=== PATIENT | male | born 1990 | race African-American/Black ===

== ENCOUNTER 2017-01-20 17:31 | Emergency (ER) | payer BC ==
[~2017-01-20] VITALS: Ht 162.6 cm; Wt 61.0 kg
[~2017-01-20 17:31] MED LIST: ALBU8.5H5 IH; PRED20TA PO; PROM6.25 PO
[2017-01-20 17:34] VITALS: Ht 162.6 cm; Wt 61.0 kg
[2017-01-20] MEDS ORDERED: KETOROLAC 30 MG INJ IM STA (19:19)
[2017-01-20 19:36] LABS: BASOPHILS % 0.3 % (0.0-2.0); EOSINOPHILS # 0.1 10^3/ul (0.0-0.5); EOSINOPHILS % 0.9 % (0.0-7.0); HEMATOCRIT 42.8 % (42.0-52.0); HEMOGLOBIN 14.7 g/dl (14.0-18.0); LYMPHOCYTES % 17.2 % (15.0-51.0); MEAN CORPUSCULAR HEMOGLOBIN 31.1 pg (29.0-33.0); MEAN CORPUSCULAR HGB CONC 34.3 g/dl (32.0-37.0); MEAN CORPUSCULAR VOLUME 90.7 fl (82.0-101.0); MEAN PLATELET VOLUME 12.1 fl (7.4-10.4); MONOCYTES % 8.2 % (0.0-11.0); NEUTROPHIL # 8.7 10^3/ul (1.6-7.5); NEUTROPHILS % 73.1 % (39.0-77.0); PLATELET COUNT 155 10^3/UL (140-415); RED BLOOD COUNT 4.72 10^6/ul (4.70-6.10); RED CELL DISTRIBUTION WIDTH 13.3 % (11.5-14.5); WHITE BLOOD COUNT 11.8 10^3/ul (4.8-10.8)
[2017-01-20 19:54] LABS: ANION GAP 13 (8-16); BLOOD UREA NITROGEN 13 mg/dl (7-20); CALCIUM 9.8 mg/dl (8.4-10.2); CARBON DIOXIDE 28 mmol/L (21-31); CHLORIDE 104 mmol/L (97-110); CREATININE 0.99 mg/dl (0.61-1.24); GLUCOSE 84 mg/dl (70-220); POTASSIUM 4.1 mmol/L (3.5-5.1); SODIUM 141 mmol/L (135-144)
[2017-01-20 20:18] LABS: TROPONIN-I < 0.012 ng/ml (0.00-0.12)
--- NOTE | 2017-01-20 21:53 | RADRPT ---
PROCEDURE: Left rib x-rays CLINICAL INDICATION: 26 years of age, male. Chest pain. TECHNIQUE: 5 views of the left ribs. COMPARISON: None available. FINDINGS: No acute displaced left rib fracture is identified. Negative for evidence of a left pleural effusion or pneumothorax. Mediastinum is unremarkable. Additional comment:None. IMPRESSION: Negative for evidence of an acute left rib fracture, although the presence of a nondisplaced rib fra cture cannot be excluded. RPTAT: HCTS Physician Sandeep Date Time Electronically viewed and signed by Mary Ann Sanders Physician on 01/20/2017 21:52 CS/
[2017-01-20] MEDS ORDERED: NAPR-260 PO (21:55)
[2017-01-20 22:29] VITALS: BP 127/79; PULSE 100; RESP 19; TEMP 98
--- NOTE | 2017-01-20 22:59 | ERD ---
ER Documentation Chief Complaint Chief Complaint sob and chest pain with deep breathing since yesterday HPI This patient is an otherwise healthy 26-year-old male presented to the emergency department with complaints of left-sided chest pain only when taking deep inspirations. Symptoms began yesterday while he was sitting on the couch. They began suddenly. Symptoms are intermittent. He denies trauma, sick contacts, or other symptoms. He has never had the symptoms in the past. ROS All systems reviewed and are negative except as per history of present illness. Medications Home Meds Active Scripts Naproxen* (Naprosyn*) 500 Mg Tablet, 500 MG PO BID Y for PAIN AND/OR INFLAMMATION, #30 TAB Prov:ODNNA CLINTON PA-C 01/20/17 Albuterol Sulfate* (Albuterol Sulfate* HFA) 8.5 Gm Hfa.aer.ad, 2 PUFF IH Q4H Y for WHEEZING AND SOB, #1 EA Prov:LAMIN LOUIE 09/15/14 Promethazine Hcl* (Phenergan* Liq) 6.25 Mg/5 Ml Syrup, 6.25 MG PO Q12 Y for COUGH for 14 Days, ML Prov:LAMIN LOUIE 09/15/14 Prednisone* (Prednisone*) 20 Mg Tab, 40 MG PO DAILY for 4 Days, TAB Prov:LAMIN LOUIE 09/15/14 Allergies Allergies: Coded Allergies: acetaminophen (Verified Allergy, Intermediate, hives, 01/20/17) PMhx/Soc History of Surgery: Yes (Bilateral Lower Leg Surgery) Anesthesia Reaction: No Hx Neurological Disorder: No Hx Respiratory Disorders: Yes (Bronchitis) Hx Cardiac Disorders: No Hx Psychiatric Problems: No Hx Miscellaneous Medical Probl: No Hx Alcohol Use: No Hx Substance Use: No Hx Tobacco Use: No Smoking Status: Never smoker Physical Exam Vitals Vital Signs Date Time Temp Pulse Resp B/P Pulse Ox O2 Delivery O2 Flow Rate FiO2 01/20/17 22:29 98.0 100 19 127/79 100 Room Air 01/20/17 17:34 97.6 77 18 132/72 98 Physical Exam Const: Nontoxic, well-appearing male in second in mild distress secondary to pain. Head: Atraumatic Eyes: Normal Conjunctiva ENT: Normal External Ears, Nose and Mouth. Neck: Full range of motion..~ No meningismus. Resp: Clear to auscultation bilaterally. The patient winces in pain on deep inspiration. Left lower rib tenderness to palpation. Cardio: Regular rate and rhythm, no murmurs Skin: No petechiae or rashes Ext: No cyanosis, or edema Neur: Awake and alert Psych: Normal Mood and Affect Result Diagram: 01/20/17192601/20/171926 Results 24 hrs Laboratory Tests Test 01/20/17 19:27 White Blood Count 11.810^3/ul Red Blood Count 4.7210^6/ul Hemoglobin 14.7g/dl Hematocrit 42.8% Mean Corpuscular Volume 90.7fl Mean Corpuscular Hemoglobin 31.1pg Mean Corpuscular Hemoglobin Concent 34.3g/dl Red Cell Distribution Width 13.3% Platelet Count 05552^3/UL Mean Platelet Volume 12.1fl Neutrophils % 73.1% Lymphocytes % 17.2% Monocytes % 8.2% Eosinophils % 0.9% Basophils % 0.3% Nucleated Red Blood Cells % 0.0/100WBC Neutrophils # 8.710^3/ul Lymphocytes # 2.010^3/ul Monocytes # 1.010^3/ul Eosinophils # 0.110^3/ul Basophils # 0.010^3/ul Nucleated Red Blood Cells # 0.010^3/ul Sodium Level 141mmol/L Potassium Level 4.1mmol/L Chloride Level 104mmol/L Carbon Dioxide Level 28mmol/L Anion Gap 13 Blood Urea Nitrogen 13mg/dl Creatinine 0.99mg/dl Glucose Level 84mg/dl Calcium Level 9.8mg/dl Troponin I < 0.012ng/ml Current Medications Medications (Trade) Dose Ordered Sig/Libby Route PRN Reason Start Time Stop Time Status Last Admin Dose Admin Ketorolac Tromethamine (Toradol) 30 mg ONCE STAT IM 01/20/17 19:19 01/20/17 19:20 DC 01/20/17 19:30 Procedures/MDM This patient is a 18-year-old male presenting to the emergency department with complaints of left lower rib pain. He reports it is severe when he takes a deep breath. He denies trauma. Physical examination is essentially unremarkable except for some tenderness palpation over the left lower ribs. Review of laboratory studies. CBC showed mild leukocytosis at 11.8, this may be reactive secondary to pain. Chemistry panel was within normal limits. Troponin was not elevated. Rib x-ray showed negative for evidence of an acute left rib fracture, although the presence of a nondisplaced rib fracture cannot be excluded. The patient is feeling improved prior to discharge. He was stable and appropriate for outpatient management with a prescription for NSAIDs. Low suspicion for aortic dissection, acute coronary syndrome, pulmonary embolism, or other emergencies. No evidence of life-threatening pathology at time of discharge. Pt/family in agreement with discharge plan/ diagnosis. Pt/family advised to return immediately with any new or worsening symptoms. Follow-up with primary care physician within the next 1-2 days. EKG: Reviewed by myself and attending ED physician, Dr. Thanh Sood Rate/Rhythm: Normal sinus rhythm with a rate of 64 bpm. QRS, ST, T-waves: No changes consistent w/ acute ischemia Impression: No evidence of ischemia or arrhythmia PROCEDURE: Left rib x-rays CLINICAL INDICATION: 26 years of age, male. Chest pain. TECHNIQUE: 5 views of the left ribs. COMPARISON: None available. FINDINGS: No acute displaced left rib fracture is identified. Negative for evidence of a left pleural effusion or pneumothorax. Mediastinum is unremarkable. Additional comment:None. IMPRESSION: Negative for evidence of an acute left rib fracture, although the presence of a nondisplaced rib fracture cannot be excluded. RPTAT: HCTS Physician Sandeep Date Time Electronically viewed and signed by Physician Sandeep on 01/20/2017 21: 52 Departure Diagnosis: Primary Impression: Rib pain on left side Condition: Fair Patient Instructions: Chest Wall Pain, Costochondritis, Rib Contusion Additional Instructions: Call your primary care doctor TOMORROW for an appointment during the next 1-2 days.See the doctor sooner or return here if your condition worsens before your appointment time. DONNA CLINTON PA-C Jan 20, 2017 22:59
== END 2017-01-20 22:28 | disposition home or self-care (01) ==
LOC: FTE 17:31
DX: R07.81 Pleurodynia (principal)
CPT/HCPCS: 36415; 71100; 80048; 84484; 85025; 93005; 96372; 99285; J1885

== ENCOUNTER 2017-08-20 08:45 | Emergency (ER) | END 2017-08-20 10:30 | disposition home or self-care (01) ==